=== PATIENT | female | born 1935 | race Caucasian/White ===

== ENCOUNTER 2016-10-04 11:42 | Inpatient (IN) | payer OTHER ==
[~2016-10-04] VITALS: Ht 167.6 cm; Wt 102.0 kg
--- NOTE | ~2016-10-04 | EKG ---
[address] [address] ELECTROCARDIOGRAM REPORT Name: JENNIFFER NEWELL Room #: 213-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
--- NOTE | ~2016-10-04 | HC ---
[facility] [place] [address] CONSULTATION Name: JENNIFFER NEWELL Room #: 213-P [facility] IN M.R.#: [id number] Admission: 10/04/16 Attend Phys: Vitaly Hui DO Discharge: 10/10/16 Date of : 34 Report #: [id number] THIS REPORT FOR: //name// CC: YUNIER physician/PCP Vitaly Hui PRIMARY CARE PHYSICIAN: Unknown. REFERRING PHYSICIAN: Dr. Hui. REASON FOR CONSULTATION: Pulmonary embolus. HISTORY OF PRESENT ILLNESS: The patient is an 81-year-old white female who presented to the emergency room yesterday with progressive dyspnea for the past 5 days. She was felt to be in heart failure. A CT chest angiogram was performed earlier today shows bilateral pulmonary embolus. A pulmonary consultation was requested. The patient denies any past history of pulmonary embolus or DVT. She states that has been relatively active. She does not recall any family history of venothromboembolic disease. She noticed that she has been short of breath for the past 5 days with worsening symptoms. Otherwise, denies any chest pain, hemoptysis, nausea, vomiting, or diarrhea. She was felt to be in heart failure. Echocardiogram was performed showing ejection fraction approximately 30% with moderate mitral regurgitation, dilated left atrium, moderate pulmonary hypertension with a PA pressure around 41 mmHg, small pericardial effusion. Chest x-ray revealed moderate cardiomegaly, mild increase in pulmonary vascular markings. PAST MEDICAL HISTORY: Otherwise, unremarkable. PAST SURGICAL HISTORY: Unremarkable. ALLERGIES: None noted. HOME MEDICATIONS: None. She is currently on heparin drip. She is also on Coreg and Lasix. FAMILY HISTORY: Mother of heart failure. SOCIAL HISTORY: She is a lifetime nonsmoker. She rarely drinks. REVIEW OF SYSTEMS: As mentioned above, otherwise 10-point system review negative. [facility] [address] [place] [address] CONSULTATION Name: JENNIFFER NEWELL Room #: 213-P [facility] IN [facility]#: [id number] Admission: 10/04/16 Attend Phys: Vitaly Hui DO Discharge: 10/10/16 Date of : 34 Report #: [id number] PHYSICAL EXAMINATION: GENERAL: She is awake, alert, in no apparent distress. She states her dyspnea has improved markedly since admission. VITAL SIGNS: Temperature is 98 degrees Fahrenheit, pulse is 70, respiratory rate is 12, blood pressure 150/85 mmHg, and saturation is 92%. HEENT: Unremarkable. NECK: Supple without any lymphadenopathy or thyromegaly. CHEST: Breath sounds are clear bilaterally without rales or wheezes. CARDIOVASCULAR: Normal S1, S2. There are no murmurs or gallops. Pulses are 2+/4+ bilaterally. BREASTS: Deferred. ABDOMEN: Moderately obese, soft, and nontender. No organomegaly or masses are felt. GENITOURINARY: Deferred. RECTAL: Deferred. EXTREMITIES: No cyanosis, clubbing, or edema. LABORATORY DATA: CT chest angiogram shows moderate bilateral pulmonary embolus. This involved predominantly the lower lobes along with the right middle lobe. Ultrasound of the lower extremities revealed segmental thrombosis involving the left posterior tibial vein. Troponin is mildly elevated at 2.1. Echocardiogram showed ejection fraction of 30%, left ventricular hypertrophy, moderate mitral regurgitation, pulmonary artery pressure measuring 41 mmHg. Electrolytes are normal, creatinine 0.9. WBC is 7400, hemoglobin is 12.2. IMPRESSION: 1. Bilateral pulmonary embolus in this 81-year-old white female. She probably had a deep venous thrombosis based on ultrasound findings. She appears to be relatively active without any recent risk factors. 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 2. Cardiomyopathy, etiology unclear. She has currently been seen by cardiology. 3. Pulmonary hypertension related to pulmonary embolus along with cardiomyopathy and valvular heart disease. 4. Moderate mitral regurgitation. RECOMMENDATION: Agree with anticoagulation. Given that this is unprovoked with moderate thrombus load, the patient will benefit from at least 1 year of anticoagulation and reassess. In the meantime, she should be worked up for possible occult neoplasm. Hypercoagulable panel will be helpful. This can be performed at a later date when she is stable. Follow up echocardiogram should be performed regarding pulmonary hypertension. No treatment is necessary at this time other than treatment of a pulmonary embolus. She should have follow up echocardiogram regarding pulmonary hypertension. This should improve somewhat with resolution of pulmonary embolus. [address] [address] CONSULTATION Name: JENNIFFER NEWELL Room #: 213-P [facility] IN [facility]aur[facility]#: [id number] Admission: 10/04/16 Attend Phys: Vitaly Hui DO Discharge: 10/10/16 Date of : 34 Report #: [id number] In terms of prolonged anticoagulation, oral agents such as Coumadin or direct oral anticoagulant can be used. Note that Pradaxa is currently the only agent with a reversal agent if a direct oral anticoagulant is preferred. Insurance coverage of this oral anticoagulants may . Otherwise, the patient can ambulate p.r.n. as tolerated. If stable, could consider discharge planning over the next 1-2 days when cleared from cardiology standpoint. Elevated troponin may be related to myocardial stress related to pulmonary embolus. Thank you for this consultation. <ELECTRONICALLY SIGNED> By: Marco Torres MD 10/17/16 1124 1710 2259 Marco Torres MD /nt
--- NOTE | ~2016-10-04 | CATHLAB ---
[facility] [address] INVASIVE PROCEDURE REPORT Name: JENNIFFER NEWELL Room #: 213-P [facility]#: [id number] Admission: 10/04/16 Attend Phys: Vitaly Hui, Discharge: 10/10/16 Date of : 34 Date of Service: 10/18/16 0929 Report #: [id number] THIS REPORT FOR: //name// CC: YUNIER physician/PCP Vitaly Hui DATE OF SERVICE: 10/05/2016 INDICATIONS: This is an 81-year-old female patient with chest pain, elevated troponin. PROCEDURES: 1. Left heart catheterization. 2. Selective left and right coronary angiography. 3. Measurement of left ventricular end diastolic pressures. 4. Supervision of conscious sedation. SAGGER SOAK: Franco Amador M.D. BRIEF DESCRIPTION OF PROCEDURE: After informed consent was obtained, the patient was brought to the cardiac catheterization laboratory in stable condition. The patient's right groin was prepped and draped in the usual sterile manner after which lidocaine was then instilled. Utilizing a modified Seldinger technique, the right femoral artery was then accessed. Under fluoroscopic visualization using selective coronary catheters, the right and left coronaries were opacified and visualized. The left ventriculogram was likewise imaged per standard protocol with EDP being measured. Subsequent to this, the sheath was removed, hemostasis achieved. The patient tolerated the procedure well. There were no complications. FINDINGS: 1. RHYTHM: The patient's rhythm was sinus throughout the entire procedure. 2. FLUOROSCOPY: Under fluoroscopic visualization, there was minimal calcific plaquing along the epicardial coronary artery. 3. HEMODYNAMICS: A. Aortic pressure 161/95. B. Left ventricular end diastolic pressure is 25-30. 4. ANGIOGRAPHY: This is a right coronary dominant system. A. Left main is of normal origin and caliber, bifurcates left anterior descending and left circumflex and is free of high-grade disease. B. Left anterior descending is a moderate caliber type 3 vessel which courses in the anterior interventricular sulcus giving rise to the diagonal and septal branches. In its mid portion, it tapers fairly rapidly towards the apex and terminates in the posterior aspect of the inferoapical wall. No high-grade obstructive lesions are noted. C. Left circumflex is a small to moderate caliber vessel with only luminal [facility] [address] [place] [address] INVASIVE PROCEDURE REPORT Name: JENNIFFER NEWELL Jt Room #: 213-P [facility]#: [id number] Admission: 10/04/16 Attend Phys: Vitaly Hui, Discharge: 10/10/16 Date of : 34 Date of Service: 10/18/16 0929 Report #: [id number] irregularities noted. Right coronary artery is a moderate-caliber dominant vessel, which proceeds in the AV groove posteriorly giving rise to posterior descending artery and posterolateral wall branches, all of which are free of high-grade disease with only insignificant luminal irregularities. IMPRESSION: 1. Minimal nonobstructive coronary artery disease. 2. Abnormal hemodynamics with elevated left ventricular end-diastolic pressures. RECOMMENDATIONS: In view of these findings, recommendation is to optimize medical management and pursue other sources for symptoms. <ELECTRONICALLY SIGNED> By: Franco Amador MD 10/19/16 2113 0929 1511 Franco Amador MD /nt
--- NOTE | ~2016-10-04 | EKG ---
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: NELA : 1935 Requested By: Jany Garnett Order Number: [id number] MD: Romero Saxena Measurements Intervals [place] Rate: 130 P: 0 VA: QRS: -43 QRSD: 150 T: 113 QT: 356 QTc: 524 Interpretive Statements Wide-complex tachycardia, supraventricular Left bundle branch block Compared to ECG 10/04/2016 11:56:14 Heart rate has increased Electronically Signed On 10-06-2016 8:07:30 CDT by Romero Saxena [email or web address] <ELECTRONICALLY SIGNED> By: Romero Saxena MD, [facility] 10/06/16 0807 1829 1829 Romero Saxena MD, [facility] /EPI
--- NOTE | ~2016-10-04 | EKG ---
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 : 1935 Requested By: Franco Amador Order Number: [id number] MD: Romero Saxena Measurements Intervals [place] Rate: 63 P: 48 LA: 169 QRS: -30 QRSD: 148 T: 128 QT: 442 QTc: 453 Interpretive Statements Sinus rhythm Ventricular premature complex Left bundle branch block no previous ECGs available for comparison Electronically Signed On 10-16-2016 7:22:43 CDT by Romero Saxena [email or web address] <ELECTRONICALLY SIGNED> By: Romero Saxena MD, [facility] 10/16/16 0722 9 9 Romero Saxena MD, [facility] /EPI
--- NOTE | ~2016-10-04 | 2DMMODE ---
[place] [address] [facility] [place] [address] 2 D/M-MODE ECHOCARDIOGRAM Name: JENNIFFER NEWELL Room #: 213-P [facility] IN .R.#: [id number] Admission: 10/04/16 Attend Phys: Vitaly Hui, Discharge: Date of : 34 Date of Service: 10/04/16 1548 Report #: [id number] THIS REPORT FOR: //name// APPROVED REPORT Study performed: 10/04/2016 13:52:22 EXAM: Comprehensive 2D, Doppler, and color-flow Echocardiogram Patient Location: Bedside Room #: 213 Blood Pressure: 140/80 mmHg HR: 78 bpm Rhythm: Irregular Other Information Study Quality: Adequate Indications Shortness of breath, elevated troponin, NSTEMI. 2D Dimensions RVDd: 30.99 mm LVEF(%): 17.56 (>50%) IVSd: 12.95 (7-11mm) LVOT Diam: 20.35 (18-24mm) LVDd: 64.72 mm PWd: 11.59 (7-11mm) Ascending Ao: 30.70 (22-36mm) LVDs: 59.46 (25-40mm) Aortic Root: 34.96 mm Harris's LVEF: 17.56 % Volumes Left Atrial Volume (Systole) Single Plane 4CH: 56.65 mL Single Plane 2CH: 77.73 mL LA ESV Index: 33.00 mL/m2 Aortic Valve AoV Peak Bladimir.: 1.23 m/s AO Peak Gr.: 6.03 mmHg LVOT Max P.91 mmHg LVOT Max V: 0.99 m/s Mitral Valve E/A Ratio: 0.7 MV Decel. Time: 93.52 ms [facility] [place] [address] 2 D/M-MODE ECHOCARDIOGRAM Name: JENNIFFER NEWELL Room #: 213-[facility].#: [id number] Admission: 10/04/16 Attend Phys: Vitaly Hui, Discharge: Date of : 34 Date of Service: 10/04/16 1548 Report #: [id number] MV E Max Bladimir.: 0.89 m/s MV A Bladimir.: 1.23 m/s MV PHT: 27.12 ms Pulmonary Valve PV Peak Bladimir.: 0.77 m/s PV Peak Gr.: 2.36 mmHg Tricuspid Valve TR Peak Bladimir.: 2.79 m/s RAP Estimate: 10.00 mmHg TR Peak Gr.: 31.32 mmHg RVSP: 41.00 mmHg Left Ventricle Left ventricle is dilated. Mild concentric left ventricular hypertrophy. Left ventricular systolic function is severely decreased. LVEF is 30%. This study is not technically sufficient to allow evaluation of the LV diastolic function due to arrhythmia. Right Ventricle The right ventricle is normal size. Right ventricle is borderline hypokinetic. Atria Left atrium is dilated. The right atrium size is normal. Aortic Valve Aortic valve is mildly calcified. Trace aortic regurgitation. There is no aortic valvular stenosis. Mitral Valve The mitral valve is mildly thickened. Moderate mitral regurgitation. No evidence of mitral valve stenosis. Tricuspid Valve The tricuspid valve is normal in structure. There is mild tricuspid regurgitation. The right atrial pressure is estimated at 10 mmHg. There is moderate pulmonary hypertension with an estimated PAP of 41mmHg. Pulmonic Valve The pulmonary valve is normal in structure. Mild pulmonic regurgitation. Great Vessels The aortic root is normal in size. The ascending aorta is normal in size. IVC is normal in size and collapses >50% [place] [address] 2 D/M-MODE ECHOCARDIOGRAM Name: RADHA NEWELLIfeanyi Waters Room #: 213-P [facility] IN M.R.#: [id number] Admission: 10/04/16 Attend Phys: Vitaly Hui, Discharge: Date of : 34 Date of Service: 10/04/16 1548 Report #: [id number] inspiration. Pericardium A small pericardial effusion is noted. <Conclusion> Left ventricle is dilated. Mild concentric left ventricular hypertrophy. LVEF is 30%. Left atrium is dilated. Aortic valve is mildly calcified. Trace aortic regurgitation. The mitral valve is mildly thickened. Moderate mitral regurgitation. There is mild tricuspid regurgitation. The right atrial pressure is estimated at 10 mmHg. There is moderate pulmonary hypertension with an estimated PAP of 41mmHg. Mild pulmonic regurgitation. A small pericardial effusion is noted. <ELECTRONICALLY SIGNED> By: Franco Amador MD 10/04/16 1548 1548 1548 Franco Amador MD /INF
[2016-10-04 11:42] VITALS: BP 170/893
[2016-10-04 12:11] LABS: ABSOLUTE NEUTROPHILS 6.9 thou/uL (1.4-8.2); BASOPHILS 0.4 % (0.0-2.0); EOSINOPHILS 0.5 % (0.0-3.0); HEMATOCRIT 40.7 % (37.0-47.0); HEMOGLOBIN 13.6 gm/dL (12.0-15.0); LYMPHOCYTES 18.4 % (24.0-44.0); MCH 29.4 pg (26.0-34.0); MCHC 33.5 g/dL (28.0-37.0); MCV 87.8 fL (80.0-100.0); MONOCYTES 5.2 % (1.0-8.0); PLATELET COUNT 232 thou/uL (150-400); POLYS 75.5 % (36.0-66.0); RBC 4.64 mil/uL (4.20-5.00); RDW 14.1 % (10.5-14.5); WBC 9.1 thou/uL (4.0-11.0)
[2016-10-04 12:12] LABS: MANUAL DIFF NO
[2016-10-04 12:14] LABS: CALCIUM 8.9 mg/dL (8.5-10.1); CREATININE 0.9 mg/dL (0.6-1.0); POTASSIUM 3.4 mmol/L (3.5-5.1)
[2016-10-04 12:30] LABS: TROPONIN-I 1.16 ng/mL (<0.04-0.07)
[2016-10-04 14:14] LABS: APTT 24.1 Seconds (24.5-32.8); INR 1.1; PROTIME 10.9 Seconds (9.3-11.4)
[2016-10-04 14:52] VITALS: BP 159/93
[2016-10-04 20:29] VITALS: BP 166/91
[2016-10-05 00:35] LABS: ABSOLUTE NEUTROPHILS 4.2 thou/uL (1.4-8.2); BASOPHILS 0.5 % (0.0-2.0); EOSINOPHILS 2.6 % (0.0-3.0); HEMATOCRIT 36.2 % (37.0-47.0); HEMOGLOBIN 12.2 gm/dL (12.0-15.0); MCH 29.3 pg (26.0-34.0); MCHC 33.5 g/dL (28.0-37.0); MCV 87.2 fL (80.0-100.0); MONOCYTES 7.9 % (1.0-8.0); PLATELET COUNT 213 thou/uL (150-400); RBC 4.15 mil/uL (4.20-5.00); RDW 14.3 % (10.5-14.5); WBC 7.4 thou/uL (4.0-11.0)
[2016-10-05 00:53] LABS: MANUAL DIFF NO
[2016-10-05 01:01] LABS: ANION GAP 11 mmol/L (7-16); BUN 11 mg/dL (7-18); CALCIUM 8.6 mg/dL (8.5-10.1); CHLORIDE 104 mmol/L (98-107); CHOLESTEROL 166 mg/dL (<200); CO2 26 mmol/L (21-32); CREATININE 0.9 mg/dL (0.6-1.0); GLUCOSE 209 mg/dL (74-106); HDL CHOLESTEROL 53 mg/dL (>40); LDL CHOLESTEROL 91 mg/dL (<100); MAGNESIUM 1.6 mg/dL (1.8-2.4); POTASSIUM 3.5 mmol/L (3.5-5.1); SODIUM 141 mmol/L (136-145); TC:HDL 3.1 Ratio (Not establshd); TRIGLYCERIDE 111 mg/dL (<150); VLDL 22 mg/dL (<40)
[2016-10-05 01:06] LABS: SERUM ASSESSMENT Clear
[2016-10-05 01:26] LABS: TSH 4.418 uIU/mL (0.358-3.740)
[2016-10-05 03:39] VITALS: BP 169/94
[2016-10-05 08:00] VITALS: BP 150/83
[2016-10-05 12:08] VITALS: BP 150/85
[2016-10-05 17:22] VITALS: BP 158/103
[2016-10-05 19:49] VITALS: BP 145/81
[2016-10-06 04:10] VITALS: BP 148/73
[2016-10-06 07:30] VITALS: BP 141/76
[2016-10-06 08:44] LABS: CALCIUM 8.4 mg/dL (8.5-10.1); CREATININE 0.9 mg/dL (0.6-1.0); MAGNESIUM 1.8 mg/dL (1.8-2.4); POTASSIUM 3.8 mmol/L (3.5-5.1); TOTAL BILIRUBIN 0.7 mg/dL (<0.1-1.0); TOTAL PROTEIN 6.3 g/dL (6.4-8.2)
[2016-10-06 10:09] LABS: HEMATOCRIT 34.1 % (37.0-47.0); HEMOGLOBIN 11.3 gm/dL (12.0-15.0); MCH 29.4 pg (26.0-34.0); MCHC 33.1 g/dL (28.0-37.0); MCV 88.9 fL (80.0-100.0); RBC 3.83 mil/uL (4.20-5.00); RDW 14.2 % (10.5-14.5); WBC 6.7 thou/uL (4.0-11.0)
[2016-10-06 11:20] VITALS: BP 159/72
[2016-10-06] MEDS ORDERED: COREG6.25 MG PO (12:27)
[2016-10-06] MEDS ORDERED: LISINOPRIL2.5 M1 PO (12:28)
[2016-10-06 17:25] VITALS: BP 138/80
[2016-10-06 19:45] VITALS: BP 131/77
[2016-10-07] VITALS (8 sets, daily range): BP systolic 114–148; BP diastolic 64–88
[2016-10-07 05:42] LABS: HEMATOCRIT 34.1 % (37.0-47.0); HEMOGLOBIN 11.6 gm/dL (12.0-15.0); MCH 29.8 pg (26.0-34.0); MCV 87.7 fL (80.0-100.0); RBC 3.89 mil/uL (4.20-5.00); RDW 14.5 % (10.5-14.5); WBC 6.1 thou/uL (4.0-11.0)
[2016-10-07 22:45] LABS: HEMATOCRIT 35.4 % (37.0-47.0); HEMOGLOBIN 11.7 gm/dL (12.0-15.0); MCH 29.1 pg (26.0-34.0); MCHC 33.1 g/dL (28.0-37.0); MCV 88.2 fL (80.0-100.0); RBC 4.02 mil/uL (4.20-5.00); RDW 14.4 % (10.5-14.5); WBC 6.1 thou/uL (4.0-11.0)
[2016-10-07 23:36] LABS: CALCIUM 8.5 mg/dL (8.5-10.1); POTASSIUM 4.9 mmol/L (3.5-5.1)
[2016-10-07 23:42] LABS: ALBUMIN 2.9 g/dL (3.4-5.0); MAGNESIUM 1.9 mg/dL (1.8-2.4); TOTAL BILIRUBIN 0.4 mg/dL (<0.1-1.0); TOTAL PROTEIN 6.2 g/dL (6.4-8.2)
[2016-10-07 23:48] LABS: TROPONIN-I 1.27 ng/mL (<0.04-0.07)
[2016-10-08 03:35] LABS: HEMOGLOBIN 11.9 gm/dL (12.0-15.0); MCH 28.9 pg (26.0-34.0); MCHC 32.2 g/dL (28.0-37.0); MCV 89.7 fL (80.0-100.0); RBC 4.13 mil/uL (4.20-5.00); RDW 14.2 % (10.5-14.5); WBC 8.4 thou/uL (4.0-11.0)
[2016-10-08 03:49] LABS: ALBUMIN 3.1 g/dL (3.4-5.0); CALCIUM 8.9 mg/dL (8.5-10.1); POTASSIUM 5.1 mmol/L (3.5-5.1); TOTAL BILIRUBIN 0.5 mg/dL (<0.1-1.0); TOTAL PROTEIN 6.5 g/dL (6.4-8.2)
[2016-10-08 04:58] VITALS: BP 153/88
[2016-10-08 06:55] LABS: ABSOLUTE NEUTROPHILS 4.5 thou/uL (1.4-8.2); BASOPHILS 0.5 % (0.0-2.0); EOSINOPHILS 1.3 % (0.0-3.0); HEMATOCRIT 35.5 % (37.0-47.0); HEMOGLOBIN 11.5 gm/dL (12.0-15.0); LYMPHOCYTES 25.1 % (24.0-44.0); MCH 29.1 pg (26.0-34.0); MCHC 32.5 g/dL (28.0-37.0); MCV 89.4 fL (80.0-100.0); MONOCYTES 5.7 % (1.0-8.0); PLATELET COUNT 204 thou/uL (150-400); POLYS 67.4 % (36.0-66.0); RBC 3.97 mil/uL (4.20-5.00); RDW 14.2 % (10.5-14.5); WBC 6.6 thou/uL (4.0-11.0)
[2016-10-08 06:57] LABS: MANUAL DIFF NO
[2016-10-08 07:12] VITALS: BP 121/72
[2016-10-08 12:00] VITALS: BP 137/70
[2016-10-08 15:59] VITALS: BP 136/61
[2016-10-08 20:35] VITALS: BP 142/71
[2016-10-09 04:25] VITALS: BP 135/65
[2016-10-09 06:52] LABS: HEMOGLOBIN 11.1 gm/dL (12.0-15.0); MCH 29.6 pg (26.0-34.0); MCHC 33.5 g/dL (28.0-37.0); MCV 88.4 fL (80.0-100.0); RBC 3.73 mil/uL (4.20-5.00); RDW 14.3 % (10.5-14.5); WBC 6.1 thou/uL (4.0-11.0)
[2016-10-09 07:12] VITALS: BP 140/73
[2016-10-09 07:18] LABS: ALBUMIN 2.7 g/dL (3.4-5.0); CALCIUM 8.2 mg/dL (8.5-10.1); CREATININE 0.9 mg/dL (0.6-1.0); POTASSIUM 4.4 mmol/L (3.5-5.1); TOTAL BILIRUBIN 0.4 mg/dL (<0.1-1.0); TOTAL PROTEIN 5.8 g/dL (6.4-8.2)
[2016-10-09] MEDS ORDERED: ALPRAZOLAM 0.50.5 M1 PO (08:32)
[2016-10-09] MEDS ORDERED: KLOR-CON M2020 MEQ PO (08:32)
[2016-10-09] MEDS ORDERED: MAGNESIUM OXID400 MG PO (08:32)
[2016-10-09] MEDS ORDERED: PRADAXA150 MG PO (08:32)
[2016-10-09 10:55] VITALS: BP 126/61
[2016-10-09 11:01] VITALS: BP 140/73
[2016-10-09 16:05] VITALS: BP 122/44
[2016-10-09 19:34] VITALS: BP 121/49
[2016-10-09 23:30] LABS: ANTITHROMBIN III 108 % (75-135); DIL. RUSSELL VIPER VENOM 53.3 sec (0.0-47.0)
[2016-10-10 01:38] VITALS: BP 146/69
[2016-10-10 04:08] LABS: HEMATOCRIT 33.3 % (37.0-47.0); MCH 29.5 pg (26.0-34.0); MCHC 33.2 g/dL (28.0-37.0); RBC 3.74 mil/uL (4.20-5.00); RDW 14.7 % (10.5-14.5); WBC 5.9 thou/uL (4.0-11.0)
[2016-10-10 04:45] VITALS: BP 132/61
[2016-10-10 07:54] VITALS: BP 140/73
[2016-10-10] MEDS ORDERED: CARVEDILOL12.5 MG PO (08:49)
== END 2016-10-10 09:45 | disposition home or self-care (01) | DRG 286 ==
LOC: ER 11:42 → 2N 13:34 → EROBS 13:34 → 2N 13:59
PROVIDERS: Emergency Medicine; Hospitalist; Internal Medicine Geriatric Medicine; Internal Medicine Pulmonary Disease; Nurse Practitioner Family
PROC: B2101ZZ Fluoroscopy of Single Coronary Artery using Low Osmolar Contrast (ICD-10-PCS; principal; 2016-10-10)
PROC: 4A023N7 Measurement of Cardiac Sampling and Pressure, Left Heart, Percutaneous Approach (ICD-10-PCS; principal; 2016-10-10)
DX: I50.21 Acute systolic (congestive) heart failure (principal); I26.99 Other pulmonary embolism without acute cor pulmonale; I42.8 Other cardiomyopathies; J98.11 Atelectasis; I82.442 Acute embolism and thrombosis of left tibial vein; I50.20 Unspecified systolic (congestive) heart failure; E66.9 Obesity, unspecified; I27.2 Other secondary pulmonary hypertension; I34.0 Nonrheumatic mitral (valve) insufficiency; G31.84 Mild cognitive impairment of uncertain or unknown etiology; E83.42 Hypomagnesemia; Z68.36 Body mass index [BMI] 36.0-36.9, adult; Z83.2 Family history of diseases of the blood and blood-forming organs and certain disorders involving the immune mechanism; Z82.49 Family history of ischemic heart disease and other diseases of the circulatory system
CPT/HCPCS: 10081